=== PATIENT | male | born 1955 | race Caucasian/White ===

== ENCOUNTER 2018-06-07 02:09 | Emergency (ER) | payer BC ==
[~2018-06-07] VITALS: Ht 185.4 cm; Wt 93.0 kg
--- NOTE | ~2018-06-07 | EKG ---
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
--- NOTE | ~2018-06-07 | EKG ---
[place], [place] ELECTROCARDIOGRAM REPORT NAME: LOLI ARROYO UNIT #: [id number] ROOM: DOCTOR: EPIPHANY DRAFT REPORT BIRTHDATE: [birth year] [facility] Test Date: 2018-06-07 Test Time: 02:40:10 Pat Name: LOLI ARROYO Department: Room: Gender: Spooler: Aisha Ramirez : 1955 Requested By: JACQUE LUZ Order Number: [id number] Reading MD: Theron Junior MD Measurements Intervals [place] Rate: 78 P: 43 AR: 170 QRS: 34 QRSD: 97 T: 86 QT: 358 QTc: 408 Interpretive Statements Sinus rhythm Consider right ventricular hypertrophy Inferior infarct, acute (RCA) Consider anterior infarct Probable RV involvement, suggest recording right precordial leads Baseline wander in lead(s) V6 Electronically Signed On 06-08-2018 14:02:50 PDT by Theron Junior MD CM:EKGRPT:ELECTROCARDIOGRAM REPORT [id number] 1402 JACQUE BONILLA DRAFT REPORT JACQUE LUZ DO
[2018-06-07 02:38] LABS: BASO % 0.5 % (0.0-1.0); EOS # 0.2 10*3/uL (0.0-0.4); HEMATOCRIT 43.4 % (42.0-52.0); HEMOGLOBIN 15.2 g/dl (14.0-18.0); LYMPH # 1.6 10*3/uL (1.3-4.4); LYMPH % 18.7 % (27.0-41.0); MEAN CELL VOLUME 88.9 fl (80.0-94.0); MEAN CORPUSCULAR HGB 31.1 pg (27.0-31.0); MEAN PLATELET VOLUME 12.6 fl (9.6-12.3); MONO # 0.6 10*3/uL (0.1-1.0); MONO % 7.4 % (3.0-9.0); NEUT # 6.1 10*3/uL (2.3-7.9); PLATELET COUNT AUTOMATED 142 10*3/uL (130-400); RED BLOOD COUNT 4.88 10*6/uL (4.50-5.90); RED CELL DISTRI WIDTH 12.8 % (0-14.5); WHITE BLOOD COUNT 8.5 10*3/uL (4.8-10.8)
[2018-06-07] MEDS ORDERED: CARVEDILOL12.5 MG PO (02:53)
[2018-06-07 02:55] LABS: ALBUMIN 4.2 gm/dl (3.1-4.5); ALKALINE PHOSPHATASE 85 U/L (45-117); BUN 19 mg/dl (7-24); CHLORIDE 104 mmol/L (98-107); CREATININE 1.27 mg/dL (0.70-1.30); LIPASE 291 U/L (73-393); POTASSIUM 4.3 mmol/L (3.5-5.1); SGOT/AST 31 IU/L (3-35); SGPT/ALT 45 U/L (12-78); SODIUM 140 mmol/L (136-145); TOTAL PROTEIN 7.6 gm/dL (6.4-8.2)
[2018-06-07] MEDS ORDERED: HYDROCODON-ACE1 EAC1 PO (02:55)
[2018-06-07 02:58] LABS: TROPONIN I 0.061 ng/ml (<0.045)
== END 2018-06-07 03:45 | disposition short-term general hospital (02) ==
LOC: ED 02:09
PROVIDERS: Emergency Medicine
DX: I21.21 ST elevation (STEMI) myocardial infarction involving left circumflex coronary artery (principal); I10 Essential (primary) hypertension; Z79.899 Other long term (current) drug therapy